=== PATIENT | female | born 1960 | race Caucasian/White ===

== ENCOUNTER 2024-07-21 10:29 | Day surgery (SDC) | payer OTHER, SELFPAY ==
[2024-07-17 14:08] VITALS: BMI 34.3
--- NOTE | 2024-07-18 08:46 | P.CONAN_ITS ---
Documented by User: Elisabeth Wheat NP 07/18/24 08:46 HPI - Anesthesia Eval Consult details Narrative: 63yo F for Colonoscopy [facility] Past Medical History Medical History (Updated 07/17/24 @ 14:10 by Lisa Nathan RN) Depression Surgical History Surgical History (Updated 07/17/24 @ 14:10 by Lisa Nathan RN) Hx of wisdom tooth extraction History of H/O colonoscopy Social History Social History (Updated 07/17/24 @ 14:10 by Lisa Nathan RN) Household Members: Spouse Patient Tobacco Use Status: Former Tobacco user Tobacco use type: Cigarette Second Hand Smoke Exposure: No Use of substances other than those prescribed or required for medical reasons: No Are you DNR?: No Advance Directives: No Advance Directives Information Provided: Yes Advance Directives on File: No Meds Allergies Allergy/AdvReac Type Severity Reaction Status Date / Time No Known Allergies Allergy Verified 07/17/24 14:08 Home Medications ?Medication ?Instructions ?Recorded ?Confirmed ?Last Taken ?Type diphenhydramine 25 1 tab PO BEDTIME PRN Insomnia 07/17/24 07/17/24 Unknown History mg-acetaminophen 500 mg tablet (Tylenol PM Extra Strength) Exam Height,Weight and Vital Signs: Height 5 ft 5.25 in Weight 94.347 kg Assessment and Plan Assessment Anesthesia Assessment: Chart Reviewed Documented by User: Bryan Hsieh MD 07/21/24 11:48 [facility] Past Medical History Medical History (Updated 07/17/24 @ 14:10 by Lisa Nathan RN) Depression Family History Family history of problems with anesthesia: No Surgical History Surgical History (Updated 07/17/24 @ 14:10 by Lisa Nathan RN) Hx of wisdom tooth extraction History of H/O colonoscopy History of Problems with Anesthesia: No Social History Social History (Updated 07/17/24 @ 14:10 by Lisa Nathan RN) Household Members: Spouse Patient Tobacco Use Status: Former Tobacco user Tobacco use type: Cigarette Second Hand Smoke Exposure: No Use of substances other than those prescribed or required for medical reasons: No Are you DNR?: No Advance Directives: No Advance Directives Information Provided: Yes Advance Directives on File: No Meds Allergies Allergy/AdvReac Type Severity Reaction Status Date / Time No Known Allergies Allergy Verified 07/17/24 14:08 Home Medications ?Medication ?Instructions ?Recorded ?Confirmed ?Last Taken ?Type diphenhydramine 25 1 tab PO BEDTIME PRN Insomnia 07/17/24 07/17/24 Unknown History mg-acetaminophen 500 mg tablet (Tylenol PM Extra Strength) Exam Airway Mallampati Class: II TM Dist: <=3cm Neck ROM: Full Partial: Upper Heart: ok Lungs: ok Assessment and Plan Assessment Anesthesia Assessment: Anesthesia Plan Discussed Final Anesthetic Review Family History of Problems with Anesthesia: No History of Problems with Anesthesia: No NPO: Yes ASA Class: II Final Preanesthetic Review: No Changes in Pt Med Stat, Meds/Allgs Chart Reviewed, Consent Obtained/Reviewed and Anes Risks/Benef Reviewed Patient Risk: Intermediate Procedure Risk: Low Anesthetic Plan Anesthetic Plan: MAC: and Agree w/ Assess. and Plan Disposition: Standard PACU
[2024-07-21 11:05] VITALS: BP 113/64; PULSE 78; RESP 16; TEMP 36.8; O2SAT 98
[2024-07-21] MEDS: Lactated Ringers 1,000 ML 100 ML IVCONT (11:11)
[2024-07-21 12:30] VITALS: PULSE 62; RESP 18; TEMP 36.1; O2SAT 98
--- NOTE | 2024-07-21 12:33 | P.BOP_ITS ---
Brief Operative Note Date of Service: 07/21/24 Pre-op diagnosis: Screening Post-op diagnosis: other (Polyp, Anal condyloma) Procedure: Colonoscopy to the cecum and TI with bx/removal of polyp Surgeon: Oswald Craig MD Anesthesia: MAC Was an [employer] used for this Procedure?: No Estimated blood loss (mL): 2.0 Pathology: other (A. Polyp on Ileocecal valve) Condition: stable Disposition: PACU
[2024-07-21 12:45] VITALS: PULSE 66; RESP 16; TEMP 36.9; O2SAT 100
--- NOTE | 2024-07-21 12:52 | OP_ITS ---
DATE OF SERVICE: 07/21/2024 SURGEON: Oswald Craig MD INDICATIONS: The patient presents for evaluation of colorectal cancer screening and family history of colon cancer. Full consent obtained from her for this, including risks of bleeding and perforation. PREOPERATIVE DIAGNOSIS: Colorectal cancer screening and family history of colon cancer. POSTOPERATIVE DIAGNOSIS: Colorectal cancer screening and family history of colon cancer, small colon polyp, anal condyloma, internal hemorrhoids. PROCEDURE PERFORMED: Colonoscopy to the cecum and terminal ileum with biopsy and removal of polyp. ESTIMATED BLOOD LOSS: COMPLICATIONS: ANESTHESIA: Monitored anesthesia care. ASSISTANTS: SPECIMENS: DESCRIPTION OF PROCEDURE: The patient was placed in the left lateral decubitus position. A digital rectal exam revealed what appeared to be a small anal condyloma. The remainder of the exam was unremarkable. The Olympus video pediatric colonoscope was entered into the rectum and advanced easily to the cecum. Once in the cecum, I did identify normal-appearing cecal pouch with appendiceal orifice. The terminal ileum was cannulated and appeared normal. Scope withdrawn back in the colon. The entire cecum appeared normal. The ileocecal valve had a small less than 5 mm polyp, which was biopsied and completely removed with cold biopsy forceps. The scope was then slowly withdrawn assessing all mucosal surfaces carefully. Preparation was excellent. I did not visualize any other polyps, colitis nor angiodysplasia. There were occasional diverticula in the sigmoid colon. In the rectum, scope was retroflexed visualizing some small internal hemorrhoids, but no other pathology. The rectal mucosa appeared normal. The scope was straightened and withdrawn from the patient. She tolerated the procedure well and was returned to the recovery area in stable condition. IMPRESSION: 1. Small colon polyp on ileocecal valve, status post biopsy removal. 2. Mild sigmoid diverticulosis. 3. Internal hemorrhoids. 4. Anal condyloma. PLAN: The results of biopsy will be checked. Even if the colon polyp is not a tubular adenoma, I would recommend a followup coloscopy in 5 years due to her family history of colon cancer in her brother in his 50s. I did advise her to see Dr. Shin regarding removal of the anal condyloma. She will otherwise see me in the interim on a p.r.n. basis. MD RUBY Maher/HECTOR / [id number]
== END 2024-07-21 13:42 | disposition home or self-care (01) ==
PROVIDERS: Visit Provider Internal Medicine
PROC: 0DJD8ZZ Inspection of Lower Intestinal Tract, Via Natural or Artificial Opening Endoscopic (ICD-10-PCS; CPT 45378; principal; 2024-07-21 11:30)
DX: Z12.11 Encounter for screening for malignant neoplasm of colon (principal); Z80.0 Family history of malignant neoplasm of digestive organs; D12.0 Benign neoplasm of cecum; K57.30 Diverticulosis of large intestine without perforation or abscess without bleeding; K64.8 Other hemorrhoids; A63.0 Anogenital (venereal) warts; F32.A Depression, unspecified; Z79.899 Other long term (current) drug therapy; Z87.891 Personal history of nicotine dependence
CPT/HCPCS: 45380; 88305; J2003; J2704